=== PATIENT | female | born 1965 | race Caucasian/White ===

== ENCOUNTER 2017-08-20 22:37 | Emergency (ER) | payer BC ==
[~2017-08-20] VITALS: Ht 177.8 cm; Wt 80.7 kg
[~2017-08-20 22:37] MED LIST: PRILOSEC10 MG PO; ZOFRAN ODT4 MG PO
[2017-08-20 22:42] VITALS: BP 125/72
[2017-08-20] MEDS ORDERED: TAMIFLU 75MG CA75 MG PO (23:23)
[2017-08-20] MEDS ORDERED: OMNICEF300 MG PO (23:23)
[2017-08-20] MEDS ORDERED: Zofran4 MG SL (23:23)
== END 2017-08-21 00:24 | disposition home or self-care (01) ==
LOC: ED 22:37
DX: J11.1 Influenza due to unidentified influenza virus with other respiratory manifestations (principal); H65.93 Unspecified nonsuppurative otitis media, bilateral; Z79.899 Other long term (current) drug therapy; Z88.0 Allergy status to penicillin

== ENCOUNTER → 2018-05-28 | Outpatient (CLI) | payer BC ==
[~2018-05-28] MED LIST changes: +OMNICEF300 MG PO; +TAMIFLU 75MG CA75 MG PO; +Zofran4 MG SL
== END | disposition home or self-care (01) ==
LOC: RESCLI 16:18
DX: K21.9 Gastro-esophageal reflux disease without esophagitis (principal); J34.89 Other specified disorders of nose and nasal sinuses; H04.129 Dry eye syndrome of unspecified lacrimal gland; R68.2 Dry mouth, unspecified; Z76.89 Persons encountering health services in other specified circumstances; Z88.0 Allergy status to penicillin

== ENCOUNTER → 2020-05-06 | Outpatient (CLI) | payer BC | END | disposition home or self-care (01) | LOC: COVID19 11:25 | PROVIDERS: ATTEND Nurse Practitioner | DX: U07.1 COVID-19 (principal) ==